=== PATIENT | female | born 1995 | race Two or more races ===

== ENCOUNTER 2016-11-12 12:29 | Emergency (ER) | payer OTHER ==
[2016-11-12] MEDS ORDERED: ACETAMINOPHEN 500 MG TABLET ONE (14:33)
[2016-11-12] MEDS ORDERED: KETOROLAC TROMETHAMINE 30 MG/ML 1 ML VIAL ONE (14:33)
== END 2016-11-12 15:36 | disposition home or self-care (01) ==
LOC: ED 12:29
DX: M54.5 Low back pain (principal)
CPT/HCPCS: 99283 ×2; 96372; J1885; A9270